=== PATIENT | female | born 1990 | race African-American/Black ===

== ENCOUNTER 2025-03-29 02:10 | Emergency (ER) | payer OTHER, SELFPAY ==
[2025-03-29 02:19] VITALS: BP 135/72
[2025-03-29 02:25] VITALS: BMI 33.8
[2025-03-29 05:20] VITALS: BP 151/85
--- NOTE | 2025-03-29 06:00 | ED.GENMED ---
History of Present Illness
General
Chief Complaint: Back Pain
Time Seen by Provider: 03/29/25 06:00
History of Present Illness
History of Present Illness:
FOCUSED PAST MEDICAL HISTORY
- Uterine fibroids
REVIEW OF OLD RECORDS
- The patient was seen here in 2022 with chest pain, she has had in 2019
Note:
CHIEF COMPLAINT(S)
- Sudden onset of severe back pain
HISTORY OF PRESENT ILLNESS
The patient is a 34-year-old female who presented with sudden onset of severe back pain that started last night around 10:30 PM when she was getting up from bed. She described the pain as originating near the posterior superior iliac spine (PSIS)
and radiating into her right leg but not extending beyond her thigh. The patient reported that she was unable to go to work due to the intensity of the pain and sought assistance from her mother to come to the emergency department. She mentioned
previous occasional mild back discomfort but characterized this episode as more severe and atypical for her. The patient denied any history of ongoing back issues, significant trauma, or falls. There are no associated symptoms such as headaches,
chest pain, or fever. On examination, elevating the right leg reproduced the pain. The patient expressed interest in possibly having an X-ray to rule out any fractures, given her job responsibilities require heavy lifting. She declined pain
medication initially but was agreeable to an X-ray for further evaluation.
ADDITIONAL HISTORY OBTAINED FROM SOURCES OTHER THAN THE PATIENT
- None available
SOCIAL HISTORY
The patient denies any history of drug use.
MEDICATIONS
- No current use of muscle relaxants like Flexeril nor NSAIDs.
PHYSICAL EXAM
General: Alert, appears somewhat uncomfortable especially with any attempted movement of the thoracolumbar spine
Skin: Warm, dry.
Head: Normocephalic, atraumatic.
Neck: Supple, trachea midline.
Eyes, Ears, Nose, Mouth, and Throat: Oral mucosa moist.
Cardiovascular: Normal peripheral perfusion, no edema.
Respiratory: Respirations are non-labored.
Gastrointestinal: Abdomen non-distended.
Back: Tenderness near the right posterior superior iliac spine. No midline L-spine tenderness. Decreased active range of motion due to pain
Musculoskeletal: Pain on lifting right leg, pain radiates to the thigh. Normal range of motion otherwise. Borderline positive straight leg raise on the right
Neurological: Alert and oriented to person, place, time, and situation. No focal neurological deficit observed.
Psychiatric: Cooperative, appropriate mood and affect.
PLAN
- Administer Toradol injection for pain relief.
- Obtain an X-ray of the lumbar spine to rule out fractures, contingent upon negative test.
- Instructed the patient to provide a urine sample to rule out before radiological procedures.
- Advised the patient to arrange transportation home with her after discharge.
DIFFERENTIAL DIAGNOSIS
The Differential Diagnosis includes, in no particular order and is not limited to:
1. Lumbar Muscle Strain
2. Herniated Disc
3. Sciatica
4. Sacroiliac Joint Dysfunction
5. Lumbar Radiculopathy
6. Vertebral Compression Fracture
7. Spinal Stenosis
8. Osteoarthritis of the Spine
9. Ankylosing Spondylitis
10. Pyelonephritis
RADIOLOGY
- Lumbar spine x-ray unremarkable
LABS
- hCG considered however the patient denies any chance of and just got off her period
UPDATE
- The patient has declined analgesia but just wants to get imaging. I explained to her this is likely very low yield. There is no clear indication for MRI at this time. Will obtain x-ray.
SUMMARY OF ENCOUNTER
The patient, a 34-year-old female, presented with sudden onset of severe back pain originating near the posterior superior iliac spine and radiating into her right leg. The pain started when she was getting up from bed. An X-ray of the lumbar spine
was obtained to rule out fractures, contingent upon a negative test, as the patient expressed concern due to her job involving heavy lifting. The X-ray showed no compression fractures or abnormalities, indicating the likely source of pain
is muscular. The patient expressed a preference for possible Toradol (ketorolac) injection for immediate relief and was counseled on the use of [id number]-rna-[id number] ibuprofen to manage symptoms.
DISPOSITION
Discharge
ASSESSMENT
Likely muscular strain near the posterior superior iliac spine with pain radiating into the right leg.
PLAN
- Recommend taking 600-800 mg of [id number]-tlqtzgg ibuprofen every 8 hours with food for a few days to manage inflammation and pain.
- Consider Toradol (ketorolac) injection for immediate pain relief, pending patient consent.
INDEPENDENT REVIEW OF LABS AND INTERPRETATION OF TESTS
My independent interpretation of the X-ray indicates no compression fractures or abnormalities in the lumbar spine.
PATIENT EDUCATION AND COUNSELING
The patient was informed that the X-ray results were normal, with no bone compression or fractures identified. She was advised that her symptoms likely result from a muscular issue and provided guidance on the use of anti-inflammatory medications
for relief. Discussion also covered possible side effects and the importance of taking ibuprofen with food.
FOLLOW-UP INSTRUCTIONS
The patient is instructed to follow up with her primary care provider if her symptoms do not improve within a few days or if the pain worsens.
MEDICATION RECONCILIATION
- Prescription written for [id number]-hpn-harxxqw ibuprofen 600-800 mg every 8 hours with food.
MEDICAL DECISION MAKING
-Complexity of Data Reviewed: The differential diagnosis included lumbar muscle strain, herniated disc, sciatica, sacroiliac joint dysfunction, lumbar radiculopathy, vertebral compression fracture, spinal stenosis, osteoarthritis of the spine,
ankylosing spondylitis, and pyelonephritis.
-Data:
Category 1
My independent interpretation of the X-ray showed no compression fractures or abnormalities, consistent with muscle strain.
Category 2
Clinical information was obtained directly from the patient; no additional historian was required.
-Risk:
Prescription medication was considered, including ibuprofen for ongoing management of symptoms.
Consideration of Admission/Observation: Escalation of care including admission/observation was considered given the complexity and risk of the patients presenting complaint, exam findings, and/or their underlying comorbidities. However, ultimately I
feel the patient is safe for outpatient management with close follow up. Reasoning: Work-up reassuring, does not reveal any acute life/organ-threatening processes, patients symptoms well controlled upon reevaluation, reexamination is reassuring,
vitals are stable, patient agreeable with discharge, reliable for follow-up.
DIAGNOSIS
1. Lumbar Muscle Strain (ICD-10: M62.830)
I again offered analgesia and she again declined
Past History
Past History
ED Past Medical History: Other (uterine fibroids)
ED Past Surgical History:
Social History
Tobacco: Non-smoker
Alcohol: None
Drug: None
Personal:
Living: with family
Employment: Employed
Family History
Family History: Diabetes; Negative CAD
Phy Exam
Physical Exam
Physical Exam:
See HPI
Course
Orders/Labs/Results
Orders:
Orders
03/29/25 06:09
CR Lumbar Spine Comp Min 4 Vw* Urgent
Comment:
Reason For Exam: severe acute pain on right
Vital Signs
Initial and Last Documented VS:
Initial Vital Signs
Temp Pulse Resp BP Pulse Ox
36.3 C 67 20 135/72 99
03/29/25 02:19 03/29/25 02:19 03/29/25 02:19 03/29/25 02:19 03/29/25 02:19
Last Documented Vital Signs
Temp Pulse Resp BP Pulse Ox
36.6 C 76 18 151/85 99
03/29/25 05:20 03/29/25 05:20 03/29/25 05:20 03/29/25 05:20 03/29/25 06:01
*Pulse Oximetry
SaO2: 99
Oxygen Mode of Delivery: Room air
Patient hypoxic: no
*Critical Care Note
Total Time (30-74mins, 75-104mins- exclusive of procedures): Not Applicable
ED Attending Note
-
Portions of this chart may have been created with voice recognition software.� Occasional wrong word or��sound alike� substitutions may have occurred due to the inherent limitations of voice recognition software.
Discharge Plan
Departure
Patient Disposition: Home (Routine Discharge)
Date of Disposition: 03/29/25
Time of Disposition: 07:26
Patient with high blood pressure during this ER visit?: Yes
Discharge Problem:
Low back pain
Instructions: Low Back Pain (DC), BLOOD PRESSURE
Prescriptions:
No Action
No Current Medications
0
Activity Restrictions/Additional Instructions:
Discharge Motrin. X-ray of the low back shows no abnormality of the bones. I suspect your symptoms are related to strained muscles of the low back.
Interventions
Interventions:
*Risk Screen - Suicide Last Done: 03/29/25 02:19
*General Assessment Last Done: 03/29/25 02:19
*Neglect/Abuse Screening Last Done: 03/29/25 02:19
*ED- Fall Risk Assessment Last Done: 03/29/25 02:19
*ED COVID-19 Vaccine History Last Done: 03/29/25 02:19
*ED Influenza Vaccine History Last Done: 03/29/25 02:19
ED-Musculoskeletal Assessment Last Done: 03/29/25 05:20
Discharge Date and Time
Print Language: WELSH
[2025-03-29 07:40] VITALS: BP 124/74
== END 2025-03-29 07:40 | disposition home or self-care (01) ==
LOC: EMR 02:10
PROVIDERS: EMERGENCY PHYSICIAN Emergency Medicine; PRIMARYCARE PHYSICIAN Family Medicine
DX: S39.012A Strain of muscle, fascia and tendon of lower back, initial encounter (principal); X58.XXXA Exposure to other specified factors, initial encounter
CPT/HCPCS: 99283; 72110